=== PATIENT | female | born 1940 | race Caucasian/White ===

== ENCOUNTER 2020-11-13 12:54 | Outpatient (REF) | payer MEDICARE, SELFPAY ==
--- NOTE | ~2020-11-13 | MR_ITS ---
EXAMINATION: UNENHANCED MRI OF THE BRAIN CLINICAL INFORMATION: Encephalopathy. Self-reported history of multiple sclerosis and history of lung cancer. COMPARISON: None TECHNIQUE: Routine unenhanced MRI of the brain. Additional sagittal T2 FLAIR demyelinating protocol sequences are obtained. FINDINGS: At least 15 discrete supratentorial white matter T2 hyperintensities are identified with multiple lesions exhibiting a periventricular perivenular configuration (Marks finger configuration). The largest discrete lesions measure approximately 1.3 cm in maximum dimension. Multiple additional punctate juxtacortical and periventricular lesions are noted elsewhere within the supratentorial brain. No infratentorial lesions are identified. Moderate diffuse commensurate prominence of the ventricles and sulci is visualized. No intracranial hemorrhage, tumors or acute infarcts are noted. Normal flow-related signal intensity is present in the major intracranial vessels and dural sinuses. Bilateral ocular lens extractions are visualized. Mild mucosal thickening is noted within the frontal sinuses and anterior left ethmoid air cells. No mastoid or middle ear cavity effusions are noted. The craniocervical junction and cerebellar tonsils are normal in appearance. No suspicious marrow abnormalities are identified. MR/MR head/brain wo con IMPRESSION: 1. No definitive acute abnormalities identified. No acute infarcts or intracranial hemorrhage. 2. Findings suspicious for demyelinating disease. Approximately 15 discrete supratentorial white matter lesions along with multiple punctate juxtacortical and periventricular lesions are noted, with multiple periventricular lesions present in a perivenular configuration suspicious for demyelinating disease. No areas of cystic encephalomalacia (T1 dark spots). No infratentorial demyelinating lesions identified. 3. Mild-moderate diffuse parenchymal volume loss of the brain.
== END 2020-11-13 12:55 | disposition home or self-care (01) ==
LOC: HO.MRI 12:54
PROVIDERS: PCP Internal Medicine; Visit Provider Psychiatry & Neurology Neurology
DX: G93.40 Encephalopathy, unspecified (principal); R29.90 Unspecified symptoms and signs involving the nervous system; R29.2 Abnormal reflex
CPT/HCPCS: 70551

== ENCOUNTER → 2022-09-24 12:31 | Outpatient (BNVA) | payer MEDICARE, SELFPAY | PROVIDERS: PCP Internal Medicine; Visit Provider Psychiatry & Neurology Neurology | DX: M47.816 Spondylosis without myelopathy or radiculopathy, lumbar region (principal); R29.898 Other symptoms and signs involving the musculoskeletal system; G35 Multiple sclerosis | CPT/HCPCS: 99202 ==

== ENCOUNTER 2023-04-08 13:27 | Outpatient (AMB) | payer MEDICARE, SELFPAY ==
[2023-04-08 13:30] VITALS: BP 130/70; PULSE 80; O2SAT 95; BMI 18.2
--- NOTE | 2023-04-08 13:30 | A.OFFVIS_ITS ---
Intake Vital Signs 04/08/23 13:30 Height 5 ft Weight 93 lb BMI 18.2 BP 130/70 Blood Pressure Location Rt brachial Position Sitting Pulse 80 Pulse Source Pulse Oximeter Pulse Oximetry (%) 95 Oxygen Delivery Method Room Air Intake Visit Reasons: 6m follow up Leg Weakness-Confirmed Intake Note: Pt presents to the office today for a 6 month follow up for leg weakness. Allergies senna Allergy (Unknown, Verified 04/08/23 13:33) Unknown HPI HPI Comments History of Present Illness Details 83 y/o female with Multiple Sclerosis di agnosed at age 16 (right sided weakness, never been on any disease modifying therapy) comes for follow up of gait disorder. Pt reports she feels unsteady but did not fall. 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 Night time upper and lower extremities cramping managed well with PRN tizadidine. She gets meals on wheels and having 3 meals a day. Her MS history is unclear, her first episode was when she was 16- right sided weakness, 30 years later she had numbness of her legs. She denies any back pain. COUNTS INCLUDE 234 BEDS AT THE [facility] Medical History Bilateral leg weakness Lung cancer Osteoarthritis Diverticulitis Constipation Mild cognitive impairment Glaucoma Multiple sclerosis BPPV (benign paroxysmal positional vertigo) Anxiety Lumbar spondylosis Lumbar spinal stenosis COPD (chronic obstructive pulmonary disease) Surgical History History of thoracotomy History of lobectomy of lung Hx of tonsillectomy Social History Alcohol intake: never Patient Tobacco Use Status: Former Tobacco user Years Smoked: quit 1980 Review of Systems Const All systems reviewed & are unremarkable except as noted in HPI and below Physical Exam Vital Signs: Last Vital Signs Pulse 80 04/08/23 13:30 BP 130/70 04/08/23 13:30 Pulse Ox 95 04/08/23 13:30 Oxygen Delivery Method Room Air 04/08/23 13:30 BMI result Body Mass Index 18.2 Const General: cooperative, comfortable and no acute distress Nutritional Appearance: average body habitus Orientation/consciousness: patient oriented x3 Limitations: physical limitations Neuro Other: mild right facial weakness mild slurred speech Gait- mild wide based and off balance General: patient oriented x3 Deep tendon reflexes (DTR's): Right triceps reflex intensity grade: 2+, Left triceps reflex intensity grade: 2+, Rt Biceps (C5, C6): 2+, Left biceps reflex intensity grade: 2+, Right brachioradialis reflex intensity grade: 2+, Left brachioradialis reflex intensity grade: 2+, Right patellar reflex intensity grade: 3+, Left patellar reflex intensity grade: 3+, Right ankle reflex intensity grade: 3+ and Left ankle reflex intensity grade: 3+ Coordination: [id number] test normal, [id number] test normal and other Psych Appearance: grossly normal Assessment & Plan Assessment & Plan (1) Bilateral leg weakness: Code(s): R29.898 - Other symptoms and signs involving the musculoskeletal system (2) Lumbar spondylosis: Code(s): M47.816 - Spondylosis without myelopathy or radiculopathy, lumbar region (3) Multiple sclerosis: Comment: Quiescent Code(s): G35 - Multiple sclerosis Plan Discussed fall prevention and advised patient to continue exercises. Coding Level of Care Code Est Pt Level 3 (24632) Diagnoses Bilateral leg weakness R29.898 Lumbar spondylosis M47.816 Multiple sclerosis G35
== END 2023-04-08 13:51 | disposition home or self-care (01) ==
PROVIDERS: Visit Provider Nurse Practitioner Family
DX: R29.898 Other symptoms and signs involving the musculoskeletal system (principal); M47.816 Spondylosis without myelopathy or radiculopathy, lumbar region; G35 Multiple sclerosis
CPT/HCPCS: 99213

== ENCOUNTER → 2023-04-08 13:27 | Outpatient (BNVA) | payer MEDICARE, SELFPAY | PROVIDERS: Visit Provider Nurse Practitioner Family | DX: G35 Multiple sclerosis (principal); M47.816 Spondylosis without myelopathy or radiculopathy, lumbar region; R29.898 Other symptoms and signs involving the musculoskeletal system | CPT/HCPCS: 99212 ==